=== PATIENT | female | born 1975 | race American Indian/Alaskan Native ===

== ENCOUNTER 2018-03-24 10:40 | Emergency (ER) | payer MEDICAID, OTHER ==
[2018-03-24 10:40] VITALS: BMI 23.0
[2018-03-24 10:54] VITALS: RESP 18; TEMP 98.1; O2SAT 100
[2018-03-24] MEDS ORDERED: Sodium Chloride 0.9% 1,000 ML IV STA (11:13)
--- NOTE | 2018-03-24 11:20 | ED PDOC ---
Arrival/HPI - General Chief Complaint: GI Problem Time Seen by Provider: 03/24/18 10:56 - History of Present Illness Narrative History of Present Illness (Text): 03/24/18 11:18 Patient is a 42 y/o F presenting with vomiting. Patient reports that she has had inability to tolerate po x 4 days. Denies abdominal pain, dysuria, flank pain, fever, diarrhea/constipation. Reports that she is currently on her menses. Reports similar symptoms with admission 3 months ago (chart review shows gerd, substance abuse and bar[place] colitis- discharged after GI eval). She reports that she has not followed up with Dr. Parks Past Medical History - Infectious Disease Hx of Infectious Diseases: None - Cardiac Hx Cardiac Disorders: No - Pulmonary Hx Respiratory Disorders: No - Neurological Hx Neurological Disorder: No - HEENT Hx HEENT Disorder: No - Renal Hx Renal Disorder: No - Endocrine/Metabolic Hx Endocrine Disorders: No - Hematological/Oncological Hx Anemia: Yes - Integumentary Hx Dermatological Disorder: No - Musculoskeletal/Rheumatological Hx Falls: No - Gastrointestinal Hx Gastrointestinal Disorders: No - Genitourinary/Gynecological Hx Genitourinary Disorders: No - Psychiatric Hx Psychophysiologic Disorder: No Hx Substance Use: Yes (pot daily quit a few days ago) Family/Social History Family/Social History: No Known Family HX Smoking Status: Heavy Smoker > 10 Cigarettes Daily Hx Alcohol Use: Yes (social) Hx Substance Use: Yes (pot daily quit a few days ago) Allergies/Home Meds Allergies/Adverse Reactions: Allergies No Known Allergies Allergy (Verified 03/24/18 10:52) Home Medications: Home Meds Medication Instructions Recorded Confirmed No Known Home Med 03/24/18 03/24/18 Review of Systems - Review of Systems Constitutional: absent: Fatigue, Weight Change, Fevers Respiratory: absent: SOB, Cough, Sputum Cardiovascular: absent: Chest Pain, Palpitations, Edema Gastrointestinal: Nausea, Vomiting. absent: Abdominal Pain, Constipation, Diarrhea Genitourinary Female: Vaginal Bleeding (on menses). absent: Dysuria, Frequency , Hematuria Musculoskeletal: absent: Back Pain Skin: Normal. absent: Rash Neurological: absent: Headache, Dizziness Psychiatric: absent: Anxiety Physical Exam Vital Signs Temp Pulse Resp BP Pulse Ox 03/24/18 18:09 64 18 128/64 100 03/24/18 17:58 64 18 128/64 100 03/24/18 15:00 69 18 131/68 100 03/24/18 13:53 75 18 135/71 100 03/24/18 12:13 79 18 138/79 100 03/24/18 10:54 98.1 F 86 18 141/89 100 Temperature: Afebrile Blood Pressure: Normal Pulse: Regular Respiratory Rate: Normal Appearance: Positive for: Well-Appearing, Non-Toxic, Comfortable Pain Distress: None Mental Status: Positive for: Alert and Oriented X 3 - Systems Exam Head: Present: Atraumatic, Normocephalic Pupils: Present: PERRL Extroacular Muscles: Present: EOMI Conjunctiva: Present: Normal Mouth: Present: Moist Mucous Membranes Neck: Present: Normal Range of Motion Respiratory/Chest: Present: Clear to Auscultation, Good Air Exchange. No: Respiratory Distress, Accessory Muscle Use Cardiovascular: Present: Regular Rate and Rhythm, Normal S1, S2. 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 CT as below. 03/24/18 16:43 CT Abdomen and Pelvis without intravenous contrast Creator : Enrike Mohan MD FINDINGS: LOWER THORAX: Unremarkable. LIVER: Unremarkable. No gross lesion or ductal dilatation. GALLBLADDER AND BILE DUCTS: Unremarkable. PANCREAS: Unremarkable. No gross lesion or ductal dilatation. SPLEEN: Unremarkable. ADRENALS: Unremarkable. No mass. KIDNEYS AND URETERS: Unremarkable. No hydronephrosis. No solid mass. VASCULATURE: Unremarkable. No aortic aneurysm. BOWEL: [place] colitis apparent on the prior study a.m. restricts interval. APPENDIX: Unremarkable. Normal appendix. PERITONEUM: Unremarkable. No free fluid. No free air. LYMPH NODES: Unremarkable. No enlarged lymph nodes. BLADDER: Unremarkable. REPRODUCTIVE: Mildly enlarged, anteverted uterus. No adnexal abnormalities are identified. BONES: No acute fracture. IMPRESSION: No evidence of renal calculus disease, obstructive uropathy or bladder abnormality. Interval improvement previously identified colitis. 03/24/18 20:37 Patient now tolerating po. Will dc to follow-up with PMD - Lab Interpretations Lab Results: 03/24/18 12:30 03/24/18 12:30 Lab Results 03/24/18 12:30: Sodium 145, Potassium 3.7, Chloride 101, Carbon Dioxide 29, Anion Gap 18, BUN 19, Creatinine 0.8, Est GFR ( Amer) > 60, Est GFR (Non- Af Amer) > 60, Random Glucose 114 H, Calcium 9.5, Phosphorus 3.6, Magnesium 2.4 H, Total Bilirubin 0.8, AST 23, ALT 16, Alkaline Phosphatase 68, Total Protein 8.8 H, Albumin 4.7, Globulin 4.1, Albumin/Globulin Ratio 1.2, Lipase 265 03/24/18 12:30: WBC 9.1 D, RBC 4.54, Hgb 12.2, Hct 36.3, MCV 80.0, MCH 26.9, MCHC 33.6, RDW 15.7 H, Plt Count 448, MPV 9.1, Gran % 72.2 H, Lymph % (Auto) 16.4 L, [place] % (Auto) 11.2 H, Eos % (Auto) 0.1 L, Baso % (Auto) 0.1, Gran # 6.54 H, Lymph # (Auto) 1.5, [place] # (Auto) 1.0 H, Eos # (Auto) 0.0, Baso # (Auto ) 0.01 03/24/18 11:50: Urine Color Dark red, Urine Appearance Cloudy, Urine pH 6.0, Ur Specific [place] >= 1.030, Urine Protein >=300 H, Urine Glucose (UA) Negative, Urine Ketones Negative, Urine Blood Large H, Urine Nitrate Positive H, Urine Bilirubin Small H, Urine Urobilinogen 1.0 H, Ur Leukocyte Esterase Negative, Urine RBC Tntc, Urine WBC 2 - 5, Ur Epithelial Cells 3 - 4, Urine Bacteria Many - RAD Interpretation Radiology Orders: 03/24/18 15:35 ABD & PELVIS W/O PO OR IV CONT [CT] Stat - Medication Orders Current Medication Orders: Discontinued Medications Haloperidol Lactate (Haldol) 0.5 mg IM STAT STA PRN Reason: Protocol Stop: 03/24/18 12:42 Last Admin: 03/24/18 13:05 Dose: 0.5 mg IM Administration Charges Document 03/24/18 13:05 HI (Rec: 03/24/18 13:06 HI [id number]) Injection Site MAR Injection Site Left Deltoid Charges for Administration # of IM Administrations 1 Sodium Chloride (Sodium Chloride 0.9%) 1,000 mls @ 999 mls/hr IV .Q1H1M STA Stop: 03/24/18 12:13 Last Admin: 03/24/18 11:50 Dose: 999 mls/hr eMAR Start Stop Document 03/24/18 11:50 HI (Rec: 03/24/18 11:50 HI [id number]) Intravenous Solution Start Date 03/24/18 Start Time 11:50 Ketorolac Tromethamine (Toradol) 30 mg IVP STAT STA Stop: 03/24/18 11:14 Last Admin: 03/24/18 11:50 Dose: 30 mg MAR Pain Assessment Document 03/24/18 11:50 HI (Rec: 03/24/18 11:50 HI [id number]) Pain Reassessment Is this a pain reassessment? No Sleep Is patient sleeping during reassessment? No Presence of Pain Presence of Pain Yes Location Pain Location Body Site Abdomen IVP Administration Document 03/24/18 11:50 HI (Rec: 03/24/18 11:50 HI [id number]) Charges for Administration # of IVP Administrations 1 Re-Assess: MAR Pain Assessment Document 03/24/18 12:50 HI (Rec: 03/24/18 13:06 HI [id number]) Pain Reassessment Is this a pain reassessment? Yes Sleep Is patient sleeping during reassessment? Yes Metoclopramide HCl (Reglan) 10 mg IVP STAT STA Stop: 03/24/18 12:25 Last Admin: 03/24/18 12:47 Dose: 10 mg IVP Administration Document 03/24/18 12:47 HI (Rec: 03/24/18 12:47 HI [id number]) Charges for Administration # of IVP Administrations 1 Ondansetron HCl (Zofran Inj) 4 mg IVP STAT STA Stop: 03/24/18 11:14 Last Admin: 03/24/18 11:50 Dose: 4 mg IVP Administration Document 03/24/18 11:50 HI (Rec: 03/24/18 11:51 HI [id number]) Charges for Administration # of IVP Administrations 1 Ondansetron HCl (Zofran Inj) 4 mg IVP STAT STA Stop: 03/24/18 15:37 Last Admin: 03/24/18 16:19 Dose: 4 mg IVP Administration Document 03/24/18 16:19 HI (Rec: 03/24/18 16:19 HI [id number]) Charges for Administration # of IVP Administrations 1 Prochlorperazine (Compazine Tab) 5 mg PO STAT STA Stop: 03/24/18 15:37 Last Admin: 03/24/18 16:19 Dose: 5 mg Disposition/Present on Arrival - Present on Arrival Any Indicators Present on Arrival: No History of DVT/PE: No History of Uncontrolled Diabetes: No Urinary Catheter: No History of Decub. Ulcer: No History Surgical Site Infection Following: None - Disposition Have Diagnosis and Disposition been Completed?: Yes Diagnosis: Vomiting Disposition: HOME/ ROUTINE Disposition Time: 18:06 Patient Plan: Discharge Condition: GOOD Discharge Instructions (ExitCare): Nausea and Vomiting, Adult (DC) Additional Instructions: Follow-up with PMD within 2 days. Return to ED if condition worsens. Forms: [employer] (Japanese)
[2018-03-24 12:08] LABS: URINE APPEARANCE CLOUDY (CLEAR); URINE BILIRUBIN SMALL (NEGATIVE); URINE BLOOD LARGE (NEGATIVE); URINE COLOR DARK RED (YELLOW); URINE GLUCOSE (UA) NEGATIVE (NEGATIVE); URINE LEUKOCYTE ESTERASE NEGATIVE Leu/uL (NEGATIVE); URINE PROTEIN >=300 mg/dL (<30 mg/dL)
[2018-03-24 12:15] LABS: URINE RBC TNTC /hpf (0-2)
[2018-03-24 12:17] LABS: URINE BACTERIA MANY (NEG)
[2018-03-24 12:49] LABS: BASO # 0.01 K/mm3 (0.0-2.0); BASO % 0.1 % (0.0-3.0); EOS % 0.1 % (1.5-5.0); GRAN # 6.54 (1.4-6.5); GRAN % 72.2 % (50.0-68.0); HEMOGLOBIN 12.2 g/dL (12.0-16.0); LYMPH # 1.5 (1.2-3.4); LYMPH % 16.4 % (22.0-35.0); MEAN CORPUSCULAR HEMOGLOBIN 26.9 pg (25.0-35.0); MEAN CORPUSCULAR HGB CONC 33.6 g/dl (31.0-37.0); MEAN PLATELET VOLUME 9.1 fl (7.0-11.0); MONO % 11.2 % (1.0-6.0); RBC 4.54 10^6/uL (3.5-6.1); RED CELL DISTRIBUTION WIDTH 15.7 % (11.5-14.5); WHITE BLOOD COUNT 9.1 10^3/ul (4.5-11.0)
[2018-03-24 13:15] LABS: ALB/GLOB RATIO 1.2 (1.1-1.8); ALBUMIN 4.7 g/dL (3.0-4.8); ALT/SGPT 16 U/L (7-56); AST/SGOT 23 U/L (14-36); BLOOD UREA NITROGEN 19 mg/dL (7-21); CALCIUM 9.5 mg/dL (8.4-10.5); GFR AFRICAN-AMERICAN > 60; GFR NON-AFRICAN AMERICAN > 60; LIPASE 265 U/L (23-300)
--- NOTE | 2018-03-24 16:41 | CT ---
PROCEDURE: CT Abdomen and Pelvis without intravenous contrast HISTORY: hematuria, abdominal pain COMPARISON: 01/15/2017 CT abdomen pelvis TECHNIQUE: Unenhanced study. Neither oral nor intravenous contrast administered. Total exam DLP = 214.53 mGy-cm. This CT exam was performed using one or more of the following dose reduction techniques: Automated exposure control, adjustment of the mA and/or kV according to patient size, and/or use of iterative reconstruction technique. FINDINGS: LOWER THORAX: Unremarkable. LIVER: Unremarkable. No gross lesion or ductal dilatation. GALLBLADDER AND BILE DUCTS: Unremarkable. PANCREAS: Unremarkable. No gross lesion or ductal dilatation. SPLEEN: Unremarkable. ADRENALS: Unremarkable. No mass. KIDNEYS AND URETERS: Unremarkable. No hydronephrosis. No solid mass. VASCULATURE: Unremarkable. No aortic aneurysm. BOWEL: [place] colitis apparent on the prior study a.m. restricts interval. APPENDIX: Unremarkable. Normal appendix. PERITONEUM: Unremarkable. No free fluid. No free air. LYMPH NODES: Unremarkable. No enlarged lymph nodes. BLADDER: Unremarkable. REPRODUCTIVE: Mildly enlarged, anteverted uterus. No adnexal abnormalities are identified. BONES: No acute fracture. OTHER FINDINGS: None. IMPRESSION: No evidence of renal calculus disease, obstructive uropathy or bladder abnormality. Interval improvement previously identified colitis.
[2018-03-24 17:59] VITALS: BP 128/64; PULSE 64
== END 2018-03-24 18:09 | disposition home or self-care (01) ==
LOC: ED 10:40
DX: R11.10 Vomiting, unspecified (principal)
CPT/HCPCS: 74176; 80053; 81001; 83690; 83735; 84100; 85025; 87086; 96372; 96374; 96375; 96376; 99285; J1630; J1885; J2405; J2765; J7040; Q0164